=== PATIENT | male | born 1955 | race African-American/Black ===

== ENCOUNTER → 2016-12-27 | Outpatient (CLI) | payer BC | LOC: KOH-I 10:00 | DX: F17.210 Nicotine dependence, cigarettes, uncomplicated (principal); R59.0 Localized enlarged lymph nodes; J98.09 Other diseases of bronchus, not elsewhere classified; J84.10 Pulmonary fibrosis, unspecified; R91.1 Solitary pulmonary nodule | CPT/HCPCS: G0297 ==